=== PATIENT | female | born 1990 | race African-American/Black ===

== ENCOUNTER → 2018-03-16 | Day surgery (SDC) | payer BC ==
[~2018-03-16] MED LIST: LIDOCAINE 1% PF 2 ML VIAL. ID; MIDAZOLAM HCL/PF 2 MG/2 ML VIAL. IV; fentaNYL PF VIAL 100 MCG/2 ML VIAL IV
[2018-03-16] MEDS: IV RINGERS,LACTATED 1000ML 1,000 ML IV (10:12)
[2018-03-16 10:45] LABS: NEG OBC UR NEG; POS OBC UR POS; U PREG PATIENT NEGATIVE (NEG)
== END | disposition home or self-care (01) ==
LOC: SURG 09:22
DX: K64.0 First degree hemorrhoids (principal); Z88.1 Allergy status to other antibiotic agents; Z83.3 Family history of diabetes mellitus; Z80.0 Family history of malignant neoplasm of digestive organs; Z79.899 Other long term (current) drug therapy; Z87.19 Personal history of other diseases of the digestive system
CPT/HCPCS: 45330; 81025